=== PATIENT | male | born 1960 | race Caucasian/White ===

== ENCOUNTER 2018-08-02 17:25 | Inpatient (IN) | payer SELFPAY ==
[~2018-08-02] VITALS: Ht 188 cm; Wt 82.3 kg
[2018-08-02] MEDS: HEPARIN 25,000UTS/500ML PREMIX 500 ML IV PRN ×2 (02:00→19:47)
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
[2018-08-02 18:17] LABS: BASO # 0.1 x10^3/uL (0.0-0.2); BASO % 1 % (0-3); EOS % 0 % (0-3); HEMATOCRIT 52.7 % (39.0-53.0); HEMOGLOBIN 17.7 g/dL (13.0-17.5); LYMPH # 1.2 x10^3/uL (1.0-4.8); LYMPH % 9 % (24-48); MEAN CORPUSCULAR HEMOGLOBIN 31 pg (25-35); MEAN CORPUSCULAR HGB CONC 34 g/dL (31-37); MEAN CORPUSCULAR VOLUME 92 fL (79-100); MONO # 0.9 x10^3/uL (0.0-1.1); MONO % 7 % (0-9); NEUT # 10.6 x10^3uL (1.8-7.7); NEUT % 82 % (31-73); PLATELET COUNT 125 x10^3/uL (140-400); RED CELL DISTRIBUTION WIDTH 15.3 % (11.5-14.5); WHITE BLOOD COUNT 12.9 x10^3/uL (4.0-11.0)
[2018-08-02 18:26] LABS: ALBUMIN 3.6 g/dL (3.4-5.0); CALCIUM 8.6 mg/dL (8.5-10.1); CREATININE 1.1 mg/dL (0.7-1.3); POTASSIUM 3.7 mmol/L (3.5-5.1); TOTAL BILIRUBIN 2.4 mg/dL (0.2-1.0); TOTAL PROTEIN 7.1 g/dL (6.4-8.2)
[2018-08-02] MEDS ORDERED: HYDROmorphone PF 1 MG/ML DISP.SYRIN IV ONE (18:30)
[2018-08-02] MEDS ORDERED: ONDANSETRON PF 4 MG/2 ML VIAL. IV ONE (18:30)
[2018-08-02] MEDS ORDERED: IV NORMAL SALINE 1,000ML 1,000 ML IV ONE (18:30)
[2018-08-02] MEDS ORDERED: HEPARIN for IV BOLUS 10,000 UNIT/10 ML VIAL. IV ONE (19:15)
[2018-08-02] MEDS ORDERED: HEPARIN 25,000UTS/500ML PREMIX 500 ML IV PRN (19:15)
--- NOTE | 2018-08-02 19:21 | RAD ---
Ultrasound venous Doppler INDICATION:RT LOWER LEG PAIN SWELLING X5 DAYS, PT STATES HAD CLOT IN RT LEG 5YRS AGO, NOT NO BLOOD THINNERS TECHNIQUE: Grayscale, color Doppler and spectral waveform ultrasound images of the lower extremities deep veins obtained. COMPARISON: None FINDINGS: The right CFV is compressible and demonstrates evidence of blood flow. There is a hypoechoic filling defect in the right proximal SFA continuing distally into the mid and distal segments of the SFA, into the popliteal vein and calf veins. IMPRESSION: Acute DVT in the SFV, popliteal vein and calf veins. Critical findings were identified on 08/02/2018 7:13 PM, read back and verified with Dr. Bob on 08/02/2018 7:[address] Michael Aaron DO. Electronically signed by: Michael Aaron DO (08/02/2018 7:17 PM) [facility]
[2018-08-02] MEDS ORDERED: ONDANSETRON PF 4 MG/2 ML VIAL. IV PRN (19:30)
[2018-08-02] MEDS ORDERED: HALOPERIDOL LACT 5 MG/ML VIAL. IM PRN (20:15)
[2018-08-02] MEDS ORDERED: cloNIDine HCL 0.1 MG TABLET PO PRN (20:15)
[2018-08-02] MEDS ORDERED: diphenhydrAMINE 50 MG/ML VIAL IVP PRN (20:15)
[2018-08-02 21:22] VITALS: BP 136/83
[2018-08-02] MEDS ORDERED: PROP10TA PO (22:02)
[2018-08-02] MEDS ORDERED: LISI-334 PO (22:02)
[2018-08-02] MEDS ORDERED: BUSP10TA PO (22:02)
[2018-08-02] MEDS ORDERED: ESCI10TA2 PO (22:02)
[2018-08-02] MEDS ORDERED: HYDROmorphone PF 1 MG/ML DISP.SYRIN IV PRN (22:15)
[2018-08-03] VITALS (7 sets, daily range): BP systolic 94–141; BP diastolic 70–92
[2018-08-03 00:23] LABS: BARBITURATES NEG (NEG); BENZODIAZEPINES NEG (NEG); CANNABINOIDS NEG (NEG); COCAINE NEG (NEG); METHADONE NEG (NEG); OPIATES POS (NEG); PHENCYCLIDINE NEG (NEG)
[2018-08-03 00:25] LABS: AMPHETAMINE/METHAMPHETAMINE NEG (NEG)
[2018-08-03 02:14] LABS: BASO # 0.1 x10^3/uL (0.0-0.2); BASO % 1 % (0-3); EOS # 0.3 x10^3/uL (0.0-0.7); EOS % 3 % (0-3); HEMATOCRIT 48.9 % (39.0-53.0); HEMOGLOBIN 16.4 g/dL (13.0-17.5); LYMPH # 1.9 x10^3/uL (1.0-4.8); LYMPH % 19 % (24-48); MEAN CORPUSCULAR HEMOGLOBIN 31 pg (25-35); MEAN CORPUSCULAR HGB CONC 34 g/dL (31-37); MEAN CORPUSCULAR VOLUME 93 fL (79-100); MONO # 0.7 x10^3/uL (0.0-1.1); MONO % 7 % (0-9); NEUT # 7.3 x10^3uL (1.8-7.7); NEUT % 70 % (31-73); PLATELET COUNT 101 x10^3/uL (140-400); RED BLOOD COUNT 5.24 x10^6/uL (4.30-5.70); RED CELL DISTRIBUTION WIDTH 15.4 % (11.5-14.5); WHITE BLOOD COUNT 10.3 x10^3/uL (4.0-11.0)
[2018-08-03 02:24] LABS: ALBUMIN 3.2 g/dL (3.4-5.0); CALCIUM 8.1 mg/dL (8.5-10.1); CREATININE 1.1 mg/dL (0.7-1.3); POTASSIUM 3.8 mmol/L (3.5-5.1); TOTAL BILIRUBIN 2.4 mg/dL (0.2-1.0); TOTAL PROTEIN 6.5 g/dL (6.4-8.2)
[2018-08-03] MEDS ORDERED: PROPRANOLOL 10 MG TABLET. PO PRN (06:15)
[2018-08-03] MEDS: LORazepam 2 MG/ML VIAL IV PRN ×5 (06:27→15:45)
[2018-08-03] MEDS: busPIRone 10 MG TABLET. PO SCH ×3 (08:45→20:08)
[2018-08-03] MEDS: CITALOPRAM 20 MG TABLET. PO SCH (08:45)
[2018-08-03] MEDS: LISINOPRIL 20 MG TABLET PO SCH (08:48)
[2018-08-03] MEDS: MVI, ADULT NO.4 WITH VIT K 10 ML, THIAMINE INJ 100 MG, FOLIC ACID INJ 1 MG in IV NORMAL... IV SCH ×4 (08:55)
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
[2018-08-03] MEDS: HEPARIN 25,000UTS/500ML PREMIX 500 ML IV PRN (15:00)
[2018-08-03] MEDS ORDERED: WARFARIN 7.5 MG TABLET. PO ONE (19:15)
[2018-08-03] MEDS ORDERED: chlordiazePOXIDE HCL 25 MG CAPSULE PO PRN ×2 (20:00)
[2018-08-04 02:51] VITALS: BP 127/82
[2018-08-04 06:08] VITALS: BP 112/82
[2018-08-04] MEDS: CITALOPRAM 20 MG TABLET. PO SCH (08:18)
[2018-08-04] MEDS: busPIRone 10 MG TABLET. PO SCH (08:18)
[2018-08-04 08:56] VITALS: BP 98/60
[2018-08-04] MEDS: LISINOPRIL 20 MG TABLET PO SCH (09:00)
[2018-08-04] MEDS: MVI, ADULT NO.4 WITH VIT K 10 ML, THIAMINE INJ 100 MG, FOLIC ACID INJ 1 MG in IV NORMAL... IV SCH ×4 (09:00)
[2018-08-04 12:12] VITALS: BP 104/75
--- NOTE | 2018-08-04 13:23 | PDOC3 ---
Discharge Summary Visit Information Final Diagnosis Problems Medical Problems: (1) Deep vein thrombosis (DVT) of right lower extremity Status: Acute Brief Hospital Course Allergies Allergies Coded Allergies Type Severity Reaction Last Updated Verified No Known Drug Allergies 08/02/18 No Vital Signs Vital Signs Date Time Temp Pulse Resp B/P (MAP) Pulse Ox O2 Delivery O2 Flow Rate FiO2 08/04/18 12:12 91 20 104/75 (85) 94 Room Air 08/04/18 08:56 97.7 08/04/18 02:51 2.0 Lab Results Laboratory Tests Test 08/02/18 17:58 08/02/18 21:15 08/03/18 00:01 08/03/18 01:40 White Blood Count 12.9 x10^3/uL (4.0-11.0) 10.3 x10^3/uL (4.0-11.0) Red Blood Count 5.70 x10^6/uL (4.30-5.70) 5.24 x10^6/uL (4.30-5.70) Hemoglobin 17.7 g/dL (13.0-17.5) 16.4 g/dL (13.0-17.5) Hematocrit 52.7 % (39.0-53.0) 48.9 % (39.0-53.0) Mean Corpuscular Volume 92 fL (79-100) 93 fL (79-100) Mean Corpuscular Hemoglobin 31 pg (25-35) 31 pg (25-35) Mean Corpuscular Hemoglobin Concent 34 g/dL (31-37) 34 g/dL (31-37) Red Cell Distribution Width 15.3 % (11.5-14.5) 15.4 % (11.5-14.5) Platelet Count 125 x10^3/uL (140-400) 101 x10^3/uL (140-400) Neutrophils (%) (Auto) 82 % (31-73) 70 % (31-73) Lymphocytes (%) (Auto) 9 % (24-48) 19 % (24-48) Monocytes (%) (Auto) 7 % (0-9) 7 % (0-9) Eosinophils (%) (Auto) 0 % (0-3) 3 % (0-3) Basophils (%) (Auto) 1 % (0-3) 1 % (0-3) Neutrophils # (Auto) 10.6 x10^3uL (1.8-7.7) 7.3 x10^3uL (1.8-7.7) Lymphocytes # (Auto) 1.2 x10^3/uL (1.0-4.8) 1.9 x10^3/uL (1.0-4.8) Monocytes # (Auto) 0.9 x10^3/uL (0.0-1.1) 0.7 x10^3/uL (0.0-1.1) Eosinophils # (Auto) 0.0 x10^3/uL (0.0-0.7) 0.3 x10^3/uL (0.0-0.7) Basophils # (Auto) 0.1 x10^3/uL (0.0-0.2) 0.1 x10^3/uL (0.0-0.2) Prothrombin Time 11.8 SEC (9.4-11.4) Prothromb Time International Ratio 1.2 (0.9-1.1) Activated Partial Thromboplast Time 26 SEC (23-33) 64 SEC (23-33) Sodium Level 138 mmol/L (136-145) 138 mmol/L (136-145) Potassium Level 3.7 mmol/L (3.5-5.1) 3.8 mmol/L (3.5-5.1) Chloride Level 100 mmol/L (98-107) 101 mmol/L (98-107) Carbon Dioxide Level 27 mmol/L (21-32) 29 mmol/L (21-32) Anion Gap 11 (6-14) 8 (6-14) Blood Urea Nitrogen 16 mg/dL (8-26) 14 mg/dL (8-26) Creatinine 1.1 mg/dL (0.7-1.3) 1.1 mg/dL (0.7-1.3) Estimated GFR (Cockcroft-Gault) 69.0 69.0 BUN/Creatinine Ratio 15 (6-20) 13 (6-20) Glucose Level 97 mg/dL (70-99) 84 mg/dL (70-99) Calcium Level 8.6 mg/dL (8.5-10.1) 8.1 mg/dL (8.5-10.1) Total Bilirubin 2.4 mg/dL (0.2-1.0) 2.4 mg/dL (0.2-1.0) Aspartate Amino Transf (AST/SGOT) 23 U/L (15-37) 22 U/L (15-37) Alanine Aminotransferase (ALT/SGPT) 27 U/L (16-63) 25 U/L (16-63) Alkaline Phosphatase 120 U/L (46-116) 102 U/L (46-116) Total Protein 7.1 g/dL (6.4-8.2) 6.5 g/dL (6.4-8.2) Albumin 3.6 g/dL (3.4-5.0) 3.2 g/dL (3.4-5.0) Albumin/Globulin Ratio 1.0 (1.0-1.7) 1.0 (1.0-1.7) Ethyl Alcohol Level 84 mg/dL (0-10) Nasal Screen MRSA (PCR) Negative (Negative) Urine Opiates Screen Pos (NEG) Urine Methadone Screen Neg (NEG) Urine Barbiturates Neg (NEG) Urine Phencyclidine Screen Neg (NEG) Urine Amphetamine/Methamphetamine Neg (NEG) Urine Benzodiazepines Screen Neg (NEG) Urine Cocaine Screen Neg (NEG) Urine Cannabinoids Screen Neg (NEG) Urine Ethyl Alcohol Pos (NEG) Test 08/03/18 08:19 08/03/18 15:19 08/04/18 06:05 Activated Partial Thromboplast Time 51 SEC (23-33) 46 SEC (23-33) 50 SEC (23-33) Prothrombin Time 10.4 SEC (9.4-11.4) Prothromb Time International Ratio 1.0 (0.9-1.1) Brief Hospital Course Mr. Frost is a 58 old [sex] who presented with [ ] Discharge Information Dischare Medications Current Medications Sodium Chloride 1,000 ml @ 1,000 mls/hr 1X ONCE IV Last administered on at 18:36; Start 08/02/18 at 18:30; Stop 08/02/18 at 19:29; Status DC Hydromorphone HCl (Dilaudid) 1 mg 1X ONCE IV Last administered on 08/02/18at 18 :39; Start 08/02/18 at 18:30; Stop 08/02/18 at 18:35; Status DC Ondansetron HCl (Zofran) 4 mg 1X ONCE IV Last administered on 08/02/18at 18:36 ; Start 08/02/18 at 18:30; Stop 08/02/18 at 18:35; Status DC Heparin Sodium/ Dextrose 500 ml @ 0 mls/hr CONT PRN IV SEE I/O RECORD; Start at 19:15; Stop 08/02/18 at 19:28; Status DC Heparin Sodium (Porcine) (Heparin Sodium) 4,000 unit 1X ONCE IV Last administered on 08/02/18at 19:45; Start 08/02/18 at 19:15; Stop 08/02/18 at 19:23 ; Status DC Heparin Sodium/ Dextrose 500 ml @ 0 mls/hr CONT PRN IV SEE I/O RECORD Last administered on 08/02/18at 02:00; Start 08/02/18 at 19:30 Ondansetron HCl (Zofran) 4 mg PRN Q4HRS PRN IV NAUSEA/VOMITING Last administered on 08/03/18at 06:27; Start 08/02/18 at 19:30; Stop 08/03/18 at 19:29 ; Status DC Multivitamins/ Minerals 10 ml/ Thiamine HCl 100 mg/Folic Acid 1 mg/Sodium Chloride 1,011.2 ml @ 100 mls/ hr DAILY IV Last administered on 08/03/18at 08: 55; Start 08/03/18 at 09:00; Stop 08/08/18 at 08:59 Lorazepam (Ativan) 2 mg PRN Q1HR PRN IV For CIWA 8-14 Last administered on 08/03at 15:45; Start 08/02/18 at 20:15 Lorazepam (Ativan) 4 mg PRN Q1HR PRN IV For CIWA 15 or greater Last administered on 08/03/18at 13:25; Start 08/02/18 at 20:15 Haloperidol Lactate (Haldol) 5 mg PRN Q4HRS PRN IM Hallucinatns,Confusn, Delirium Last administered on 08/03/18at 13:09; Start 08/02/18 at 20:15 Diphenhydramine HCl (Benadryl) 25 mg PRN Q15MIN PRN IVP EPS symptoms 2'Haldol admin; Start 08/02/18 at 20:15 Clonidine HCl (Catapres) 0.1 mg PRN Q1HR PRN PO SBP>180 OR DBP>100, MR X 3; Start 08/02/18 at 20:15 Hydromorphone HCl (Dilaudid) 1 mg PRN Q2HR PRN IV PAIN; Start 08/02/18 at 22:15 Lisinopril (Prinivil) 20 mg DAILY PO Last administered on 08/03/18at 08:48; Start 08/03/18 at 09:00 Buspirone HCl (Buspar) 10 mg TID PO Last administered on 08/04/18at 08:18; Start 08/03/18 at 09:00 Citalopram Hydrobromide (CeleXA) 20 mg DAILY PO Last administered on 08/04/18at 08:18; Start 08/03/18 at 09:00 Propranolol HCl (Inderal) 10 mg PRN Q6HRS PRN PO ELEVATED BP, SEE COMMENTS; Start 08/03/18 at 06:15 Warfarin Sodium (Coumadin Per Pharmacy) 1 each PRN DAILY PRN MC SEE COMMENTS Last administered on 08/03/18at 19:13; Start 08/03/18 at 19:00; Stop 08/03/18 at 20:01; Status DC Warfarin Sodium (Coumadin) 7.5 mg 1X WARF ONCE PO ; Start 08/03/18 at 19:15; Stop 08/03/18 at 20:01; Status DC Chlordiazepoxide (Librium) 50 mg PRN Q1HR PRN PO For CIWA 8-14 Last administered on 08/03/18at 20:12; Start 08/03/18 at 20:00 Chlordiazepoxide (Librium) 100 mg PRN Q1HR PRN PO For CIWA 15 or greater; Start 08/03/18 at 20:00 Active Scripts Active Reported Escitalopram Oxalate 10 Mg Tablet 10 Mg PO DAILY Propranolol Hcl 10 Mg Tablet 10 Mg PO PRN Q6HRS Buspirone Hcl 10 Mg Tablet 10 Mg PO TID Lisinopril 20 Mg Tablet 20 Mg PO DAILY VENUS SPANGLER DO Aug 04, 2018 13:23
== END 2018-08-04 14:02 | disposition home or self-care (01) | DRG 300 ==
LOC: ER 17:25 → ICU 19:24
PROVIDERS: ADMIT Neuromusculoskeletal Medicine & OMM; ATTEND Neuromusculoskeletal Medicine & OMM
DX: I82.401 Acute embolism and thrombosis of unspecified deep veins of right lower extremity (principal); F10.231 Alcohol dependence with withdrawal delirium; Z79.01 Long term (current) use of anticoagulants; Z86.718 Personal history of other venous thrombosis and embolism; Z91.81 History of falling; Z79.899 Other long term (current) drug therapy
CPT/HCPCS: 36415; 80053; 80307; 85025; 85610; 85730; 87641; 93971; 96361; 96374; 96375; 99406; G0480; J1170; J1630; J1644; J2060; J2405; 99285-25; G0479; J7030

== ENCOUNTER 2018-08-11 13:59 | Emergency (ER) | payer SELFPAY ==
[~2018-08-11] VITALS: Ht 188 cm; Wt 81.6 kg
[~2018-08-11 13:59] MED LIST: BUSP10TA PO; ESCI10TA2 PO; LISI-334 PO; PROP10TA PO
[2018-08-11] MEDS ORDERED: ONDANSETRON PF 4 MG/2 ML VIAL. ONE (14:48)
[2018-08-11 14:50] LABS: BASO # 0.2 x10^3/uL (0.0-0.2); BASO % 3 % (0-3); EOS # 0.2 x10^3/uL (0.0-0.7); EOS % 4 % (0-3); HEMATOCRIT 55.6 % (39.0-53.0); HEMOGLOBIN 18.5 g/dL (13.0-17.5); LYMPH # 1.9 x10^3/uL (1.0-4.8); LYMPH % 33 % (24-48); MEAN CORPUSCULAR HEMOGLOBIN 32 pg (25-35); MEAN CORPUSCULAR HGB CONC 33 g/dL (31-37); MEAN CORPUSCULAR VOLUME 95 fL (79-100); MONO # 0.5 x10^3/uL (0.0-1.1); MONO % 9 % (0-9); NEUT % 51 % (31-73); PLATELET COUNT 307 x10^3/uL (140-400); RED BLOOD COUNT 5.86 x10^6/uL (4.30-5.70); RED CELL DISTRIBUTION WIDTH 16.7 % (11.5-14.5); WHITE BLOOD COUNT 5.8 x10^3/uL (4.0-11.0)
[2018-08-11] MEDS: IV NORMAL SALINE 1,000ML 1,000 ML IV ONE (14:51)
[2018-08-11] MEDS: ONDANSETRON PF 4 MG/2 ML VIAL. IV ONE (14:53)
[2018-08-11 14:59] LABS: ALBUMIN 3.6 g/dL (3.4-5.0); ALBUMIN/GLOBULIN RATIO 0.9 (1.0-1.7); CALCIUM 8.2 mg/dL (8.5-10.1); CREATININE 1.3 mg/dL (0.7-1.3); GFR 56.9; POTASSIUM 4.2 mmol/L (3.5-5.1); TOTAL BILIRUBIN 1.3 mg/dL (0.2-1.0); TOTAL PROTEIN 7.4 g/dL (6.4-8.2)
[2018-08-11] MEDS: MVI, ADULT NO.4 WITH VIT K 10 ML, FOLIC ACID SYRINGE for ER 1 MG, THIAMINE INJ 100 MG i... IV ONE ×4 (15:09)
[2018-08-11 15:32] VITALS: BP 122/71
[2018-08-11] MEDS: PROCHLORPERAZINE 10 MG/2 ML VIAL. IV ONE (15:43)
--- NOTE | 2018-08-11 16:12 | PHYS DOC ---
Past History Past Medical History: Alcoholism, Anxiety, DVT, Hypertension, Other Past Surgical History: No Surgical History Alcohol Use: Heavy Drug Use: None Adult General Chief Complaint Chief Complaint: ALCOHOL INTOXICATION HPI HPI 58-year-old male presents via EMS with alcohol intoxication. He states that he called EMS because he wants to get detox. When I ask him if he would like to go to rehabilitation, he states he has been in rehabilitation several times and doesn't work. He says he just wants detox. He denies any injuries or other complaints. He states that he "doesn't feel great" and has had "some dizziness" . Patient states he drinks a fifth of whiskey a day. His last drink was today. He was recently here for DVT she states he is taking his medicine as prescribed. The patient later asked specifically that I give him Ativan for withdrawal and that he wants it right now. He denies fever or chills. Review of Systems Review of Systems Constitutional: Denies fever or chills [] Eyes: Denies change in visual acuity, redness, or eye pain [] HENT: Denies nasal congestion or sore throat [] Respiratory: Denies cough or shortness of breath [] Cardiovascular: No additional information not addressed in HPI [] GI: Nausea [] : Denies dysuria or hematuria [] Musculoskeletal: Denies back pain or joint pain [] Integument: Denies rash or skin lesions [] Neurologic: Denies headache, focal weakness or sensory changes. Has dizziness [] Endocrine: Denies polyuria or polydipsia [] All other systems were reviewed and found to be within normal limits, except as documented in this note. Current Medications Current Medications Current Medications Medications (Trade) Dose Ordered Sig/Ke Start Time Stop Time Status Last Admin Dose Admin Multivitamins/ Minerals 10 ml/ Folic Acid 1 mg/ Thiamine HCl 100 mg/Sodium Chloride 1,011.1 ml @ 1,000 mls/ hr 1X ONCE 08/11/18 15:00 08/11/18 16:00 DC 08/11/18 15:09 1,000 MLS/HR Ondansetron HCl (Zofran) 4 mg 1X ONCE 08/11/18 15:00 08/11/18 15:01 DC 08/11/18 14:53 4 MG Prochlorperazine Edisylate (Compazine) 10 mg 1X ONCE 08/11/18 15:45 08/11/18 15:46 DC 08/11/18 15:43 10 MG Sodium Chloride 1,000 ml @ 1,000 mls/hr 1X ONCE 08/11/18 14:45 08/11/18 15:44 DC 08/11/18 14:51 1,000 MLS/HR Allergies Allergies Allergies Coded Allergies Type Severity Reaction Last Updated Verified No Known Drug Allergies 08/02/18 No Physical Exam Physical Exam Constitutional: Intoxicated. Well developed, well nourished, no acute distress, non-toxic appearance. [] HENT: Normocephalic, atraumatic, bilateral external ears normal, oropharynx moist, no oral exudates, nose normal. [] Eyes: PERRLA, EOMI, conjunctiva normal, no discharge. [] Neck: Normal range of motion, no tenderness, supple, no stridor. [] Cardiovascular:Heart rate regular rhythm, no murmur [] Lungs & Thorax: Bilateral breath sounds clear to auscultation [] Abdomen: Bowel sounds normal, soft, no tenderness, no masses, no pulsatile masses. [] Skin: Warm, dry, no erythema, no rash. [] Back: No tenderness, no CVA tenderness. [] Extremities: No tenderness, no cyanosis, no clubbing, ROM intact, no edema. [] Neurologic: Alert and oriented X 3, normal motor function, normal sensory function, no focal deficits noted. [] Psychologic: Affect intoxicated, mood normal but with occasional belligerence. [ ] Current Patient Data Vital Signs Vital Signs Date Time Temp Pulse Resp B/P (MAP) Pulse Ox O2 Delivery O2 Flow Rate FiO2 08/11/18 14:00 98.3 91 20 95 Room Air Lab Results Laboratory Tests Test 08/11/18 14:08 White Blood Count 5.8 x10^3/uL (4.0-11.0) Red Blood Count 5.86 x10^6/uL (4.30-5.70) H Hemoglobin 18.5 g/dL (13.0-17.5) H Hematocrit 55.6 % (39.0-53.0) H Mean Corpuscular Volume 95 fL (79-100) Mean Corpuscular Hemoglobin 32 pg (25-35) Mean Corpuscular Hemoglobin Concent 33 g/dL (31-37) Red Cell Distribution Width 16.7 % (11.5-14.5) H Platelet Count 307 x10^3/uL (140-400) # Neutrophils (%) (Auto) 51 % (31-73) Lymphocytes (%) (Auto) 33 % (24-48) Monocytes (%) (Auto) 9 % (0-9) Eosinophils (%) (Auto) 4 % (0-3) H Basophils (%) (Auto) 3 % (0-3) Neutrophils # (Auto) 3.0 x10^3uL (1.8-7.7) Lymphocytes # (Auto) 1.9 x10^3/uL (1.0-4.8) Monocytes # (Auto) 0.5 x10^3/uL (0.0-1.1) Eosinophils # (Auto) 0.2 x10^3/uL (0.0-0.7) Basophils # (Auto) 0.2 x10^3/uL (0.0-0.2) Sodium Level 144 mmol/L (136-145) Potassium Level 4.2 mmol/L (3.5-5.1) Chloride Level 105 mmol/L (98-107) Carbon Dioxide Level 30 mmol/L (21-32) Anion Gap 9 (6-14) Blood Urea Nitrogen 16 mg/dL (8-26) Creatinine 1.3 mg/dL (0.7-1.3) Estimated GFR (Cockcroft-Gault) 56.9 BUN/Creatinine Ratio 12 (6-20) Glucose Level 93 mg/dL (70-99) Calcium Level 8.2 mg/dL (8.5-10.1) L Total Bilirubin 1.3 mg/dL (0.2-1.0) H Aspartate Amino Transferase (AST) 35 U/L (15-37) Alanine Aminotransferase (ALT) 42 U/L (16-63) Alkaline Phosphatase 99 U/L (46-116) Total Protein 7.4 g/dL (6.4-8.2) Albumin 3.6 g/dL (3.4-5.0) Albumin/Globulin Ratio 0.9 (1.0-1.7) L EKG EKG [] Radiology/Procedures Radiology/Procedures [] Course & Med Decision Making Course & Med Decision Making Pertinent Labs and Imaging studies reviewed. (See chart for details) On arrival the patient's blood pressure was low we gave him 1 L normal saline. Following this appointment additional liter of banana bag. The patient asked to speak with me 2 or 3 times and each time question why cannot give him Ativan right now. I explained to the patient Ativan is given during acute alcohol intoxication and that we didn't have his labs back yet. He kept trying to tell me that he has been at other hospitals to give him Ativan while he was drunk. After the second liter, the patient's blood pressure was normal. His labs did reveal hemoconcentration with an elevated hemoglobin and hematocrit. After the patient got his second liter and some antinausea medicine, he insisted that he would like to leave AMA. We told him that this was not his best interest that he wanted to leave anyway. He did sign AMA paperwork and was able to ambulate on his own out the front door. [] Dragon Disclaimer Dragon Disclaimer This electronic medical record was generated, in whole or in part, using a voice recognition dictation system. Departure Departure: Referrals: PCP,NO (PCP) JOHANA CHEEK DO Aug 11, 2018 16:11
== END 2018-08-11 16:01 | disposition left against medical advice (07) ==
LOC: ER 13:59
DX: F10.129 Alcohol abuse with intoxication, unspecified (principal); F41.9 Anxiety disorder, unspecified; R42 Dizziness and giddiness; I10 Essential (primary) hypertension; Z86.718 Personal history of other venous thrombosis and embolism; Y90.9 Presence of alcohol in blood, level not specified
CPT/HCPCS: 36415; 80053; 85025; 96365; 96375; 99284; J0780; J2405; J7030

== ENCOUNTER → 2020-08-27 | Outpatient (CLI) | payer OTHER | END | disposition home or self-care (01) | LOC: LAB 13:39 | PROVIDERS: ATTEND Family Medicine | DX: I10 Essential (primary) hypertension (principal); F10.20 Alcohol dependence, uncomplicated; D68.9 Coagulation defect, unspecified | CPT/HCPCS: 36415; 85610 ==

== ENCOUNTER → 2021-02-18 | Outpatient (CLI) | payer OTHER ==
[~2021-02-18] MED LIST changes: -ESCI10TA2 PO; +ESCI10TA90 PO; -LISI-334 PO; +LISI20TA18 PO
--- NOTE | 2021-02-18 13:06 | RAD ---
EXAM: Abdomen sonogram. HISTORY: Alcoholism. Concern for cirrhosis. TECHNIQUE: Sonographic imaging of the abdomen was performed. COMPARISON: None. FINDINGS: The liver is normal in size. No focal hepatic lesion is seen. There is no hepatic surface n odularity to suggest cirrhosis. The common bile duct is normal in caliber. The gallbladder is unremar kable. The kidneys are normal in size. There is a 3.2 cm simple appearing cyst within the right kidne y. There is no hydronephrosis. The spleen is mildly enlarged, measuring 13.8 cm. The pancreas, aorta and vena cava are obscured due to bowel gas. IMPRESSION: 1. Obscured midline structures due to bowel gas. 2. Mild splenomegaly. 3. 3.2 cm simple appearing right renal cyst. Follow up is not routinely recommended for simple cysts. 4. No suspicious hepatic lesion. Electronically signed by: Tiffany Meyer MD (02/18/2021 1:04 PM) [id number]
== END ==
LOC: US 08:38
PROVIDERS: ATTEND Family Medicine
DX: N28.1 Cyst of kidney, acquired (principal); R16.1 Splenomegaly, not elsewhere classified; F10.20 Alcohol dependence, uncomplicated
CPT/HCPCS: 76700